=== PATIENT | male | born 1990 | race Caucasian/White ===

== ENCOUNTER 2019-12-13 01:50 | Emergency (ER) | payer SELFPAY ==
[~2019-12-13] VITALS: Ht 170.2 cm; Wt 74.8 kg
[2019-12-13 02:04] VITALS: BP 147/94
--- NOTE | 2019-12-13 02:10 | NUR ---
PT TAKEN TO BED 6
--- NOTE | 2019-12-13 02:36 | NUR ---
PATIENT LEFT WITHOUT BEING SEEN BY DR. DECKER. NO FURTHER CARE PROVIDED FOR PATIENT.
== END 2019-12-13 02:36 | disposition left against medical advice (07) ==
LOC: MED 01:50
DX: R07.9 Chest pain, unspecified (principal); Z53.21 Procedure and treatment not carried out due to patient leaving prior to being seen by health care provider